=== PATIENT | male | born 1965 | race Caucasian/White ===

== ENCOUNTER 2020-01-07 07:20 | Outpatient (REF) | payer BC, SELFPAY | END 2020-01-07 07:21 | disposition home or self-care (01) | LOC: HO.LAB 07:20 | PROVIDERS: Visit Provider Internal Medicine | DX: Z20.828 Contact with and (suspected) exposure to other viral communicable diseases (principal) | CPT/HCPCS: C9803; U0003 ==

== ENCOUNTER 2021-01-15 13:08 | Inpatient (IN) | payer BC, SELFPAY ==
--- NOTE | ~2021-01-15 | CT_ITS ---
EXAMINATION: CT ANGIOGRAM OF THE CHEST WITH AND WITHOUT CONTRAST (CT PULMONARY ANGIOGRAM FOR PE) CLINICAL INFORMATION: Shortness of breath, Covid positive. COMPARISON: Chest radiograph done earlier today at 4:59 PM (01/15/2021). TECHNIQUE: Prior to contrast administration, noncontrast localization images were obtained. Subsequently, multidetector volumetric imaging was performed from the thoracic inlet to below the diaphragms following the administration of 71 mL Omnipaque 350 intravenous contrast. No contrast reaction reported Sagittal, coronal, and MIP oblique sagittal reformatted images were obtained on the CT workstation, uploaded to PACS, and reviewed. This CT examination was performed using dose optimization techniques as appropriate, variously including the following: *Automated exposure control *Adjustment of mA and/or kV according to patient size (this includes techniques or standardized protocols for targeted exams where dose is matched to indication/reason for exam; i.e. extremities or head) *Use of iterative reconstruction technique Total exam dose-length product 318 mGy-cm FINDINGS: QUALITY OF STUDY/CONTRAST BOLUS: Suboptimal. The attenuation of the pulmonary arteries is significantly less when compared to the attenuation of the aorta and its branches which significantly limits the assessment of pulmonary emboli. PULMONARY ARTERIES: As above, evaluation of segmental and subsegmental emboli is essentially nondiagnostic given suboptimal timing of intravenous contrast. No definite central pulmonary emboli are identified. THORACIC AORTA: No aneurysm or dissection. LUNG: Multifocal groundglass opacities with peripheral predominance. No pleural effusion or pneumothorax. The central airways are patent. MEDIASTINUM: Normal heart size. No pericardial effusion. No hilar or mediastinal lymphadenopathy. No evidence of septal bowing or right heart strain. CHEST WALL/AXILLA: No axillary or internal mammary lymphadenopathy. OSSEOUS STRUCTURES: No acute or suspicious osseous abnormality. UPPER ABDOMEN: Unremarkable. No reflux of contrast into the hepatic veins to suggest elevated right heart pressures. CT/CT angio chest PE protocol IMPRESSION: Evaluation of pulmonary emboli is suboptimal given decreased attenuation of the pulmonary arteries when compared to the attenuation of the aorta. Evaluation of segmental and subsegmental emboli is essentially nondiagnostic. No definite central pulmonary emboli are identified. No evidence of increased right-sided heart pressures. Multifocal groundglass opacities consistent with Covid pneumonia. VTE: indeterminate
--- NOTE | ~2021-01-15 | XR_ITS ---
EXAMINATION: XR CHEST CLINICAL INFORMATION: Weakness, Covid positive. COMPARISON: None TECHNIQUE: AP view of the chest was obtained. FINDINGS: Multifocal hazy airspace opacities. No pleural effusion or pneumothorax. Normal appearance of the cardiomediastinal silhouette. No acute osseous findings. XR/XR chest 1V IMPRESSION: Multifocal airspace disease most consistent with an atypical infectious or inflammatory process.
[2021-01-15 13:20] VITALS: BP 113/92; PULSE 77; RESP 18; TEMP 37.2; O2SAT 98; BMI 27.0
[2021-01-15] MEDS: ondansetron HCL 4 MG/2 ML VIAL IVPUSH (17:07)
[2021-01-15] MEDS: 0.9 % Sodium Chloride 1,000 ML 999 ML IV (17:08)
[2021-01-15 17:13] LABS: Basophils Percent Auto 0.1 % (0-2); Eosinophils Percent Auto 0.1 % (0-4); Hematocrit 47.6 % (42.0-52.0); Hemoglobin 15.8 g/dl (14.0-18.0); Imm Gran Abs Auto 0.11 X10*3/uL (0.00-0.03); Imm Gran Pct Auto 1.3 % (0.0-0.4); Lymphocytes Percent Auto 11.1 % (20-40); MANUAL DIFF FLAG NO; Mean Corpuscular HGB Conc 33.2 g/dl (31.0-36.0); Mean Corpuscular Hemoglobin 29.3 pg (27.0-33.0); Mean Corpuscular Volume 88.1 fL (80.0-98.0); Monocytes Absolute Auto 0.6 X10*3/uL (0.1-1.2); Monocytes Percent Auto 7.2 % (2-11); Neutrophils Absolute Auto 6.9 x10*3/uL (2.0-8.3); Neutrophils Percent Auto 80.2 % (45-73); Platelet Count 187 X10*3/uL (160-400); White Blood Count 8.6 X10*3/uL (4.8-10.8)
--- NOTE | 2021-01-15 17:17 | ED_ITS ---
HPI - URI/Sore Throat General Chief Complaint: Upper Respiratory Symptoms Stated Complaint: dehydration covid + 14 days Time Seen by Provider: 01/15/21 16:34 Source: patient Mode of arrival: ambulatory Limitations: no limitations History of Present Illness HPI Narrative: 55-year-old male known COVID positive here with complaints of feeling generally weak with nausea for the last few days. Patient tells me he tested positive for COVID about 12 days ago. He tells me he has been out home quarantine in. He feels like he is not eating and drinking much due to nausea. And because of that he is feeling weak and tired. He denies any vomiting, abdominal pain, diarrhea. He denies any cough, shortness of breath or fever. He received a COVID vaccine Cerelink x 2 unknown date/time Related Data Previous Rx's Medication Instructions Recorded azithromycin 250 mg tablet See Rx Instructions .ROUTE 01/15/21 .COMPLEX #6 tab ondansetron 4 mg disintegrating 4 mg PO Q6H PRN #10 tab 01/15/21 tablet Allergies Allergy/AdvReac Type Severity Reaction Status Date / Time No Known Allergies Allergy Unverified 11/06/19 15:34 Review of Systems Review of Systems: Yes all other systems are reviewed and are negative Constitutional: Constitutional: Reports no additional constitutional comp laints, Denies body ache(s), Denies chills, Denies fever(s), Denies headache(s) and Reports weakness Eyes: Eyes: Reports no additional eye complaints and Denies change in vision ENT: Reports system reviewed and no additional complaints, except as documented, Denies dizziness, Denies headache(s), Denies nasal congestion, Denies nasal discharge and Denies neck pain Cardiovascular: Cardiovascular: Reports no additional cardiovascular complaints, Denies chest pain, Denies leg edema and Denies dyspnea Respiratory: Respiratory: Reports no additional respiratory complaints, Denies cough and Denies dyspnea Gastrointestinal: Gastrointestinal: Reports no additional gastrointestinal complaints, Denies abdominal pain, Denies diarrhea, Reports nausea and Denies vomiting Genitourinary: Genitourinary: Denies urinary incontinence Musculoskeletal: Musculoskeletal: Reports no additional musculoskeletal complaints, Denies back pain, Denies arthralgias, Denies joint swelling, Denies neck pain, Denies numbness and Denies tingling Integumentary/Breasts: Skin/Breast: Reports system reviewed and no additional complaints, except as docu and Denies rash Neurologic: Reports system reviewed and no additional complaints, except as documented, Denies Abnormal speech present, Denies dizziness, Denies headache(s), Denies numbness, Denies tingling and Reports weakness PMFSH Past Medical History Attestation statement: The following information was validated with the patient. Source: old records reviewed and nursing notes reviewed Social History Social History Advance Directives: Yes Advance Directives Information Provided: Yes Advance Directives on File: No Physical Exam Vital Signs: Vital Signs: Last Vital Signs Temp 100.4 F 01/15/21 18:19 Pulse 84 01/15/21 18:19 Resp 18 01/15/21 18:19 BP 127/72 01/15/21 18:19 Pulse Ox 93 01/15/21 18:32 Body Mass Index 27.0 Const: General: cooperative, healthy appearing, comfortable and no acute dis tress Orientation/consciousness: patient oriented x3 Limitations: no limitations HENMT: Head: Yes normal to inspection Ears: hearing grossly normal bilaterally and TM's normal bilaterally General nose exam: Normal external nose present Face and sinus: Yes normal facial exam Mouth: Normal oral and palatal mucosa present Throat: Yes posterior oropharynx normal, Yes tonsils normal and Yes uvula midline Eyes: General: appearance normal, both eyes and all related structures Pupils: Equal, round and reactive pupils present Neck: Neck: Yes normal visual inspection Chest: Chest palpation & inspection: normal inspection of the chest Resp: Effort & Inspection: normal respiratory effort Auscultation: clear to auscultation bilaterally Cardio: Rate: regular rate Rhythm: regular rhythm Peripheral pulses: Peripheral pulses 2+ throughout GI: Inspection: Yes normal to inspection Palpation (GI): Soft to palpation and nontender Auscultation: normal bowel sounds Back/Spine/Pelvis: Thoracic/Lumbar Spine: thoracic and lumbar spine normal to inspection Skin: General skin exam: no rashes or lesions noted Neuro: General: patient oriented x3, no focal motor deficits and normal sensation to monofilament Cranial nerves: Yes Equal, round and reactive pupils present Cognition (Neuro): normal cognition Speech: No Abnormal speech present Gait exam (Neuro): Normal gait present Motor exam (neuro): 5/5 motor strength present throughout Extrem: General: Yes normal to inspection, Yes no pedal edema and Yes no calf tenderness Course Course Course Narrative: 55-year-old male known COVID positive here with complaints of feeling weak and nauseous despite supportive care at home. On arrival the patient is well-appearing. He denies any shortness of breath or cough or chest pain. His vitals are stable. Will check labs, place P IV and give normal saline bolus and IV antiemetic as well as check a chest x-ray. 1729- IMPRESSION: Multifocal airspace disease most consistent with an atypical infectious or inflammatory process. NO hypoxia/SOB/CP. This is from a viral infection. 0-patient desaturated to 89% on room air at rest. Plan for admission. Improved on 2 L of supplemental oxygen. Admission request sent Dr. cooper. Patient will not be admitted until night team arrives. MDM - URI/Sore Throat Medical Records Attestation: I reviewed the patient's medical records. Lab Data Attestation: I reviewed the patient's lab results. Result diagrams: 01/15/21 17:02 01/15/21 17:02 Labs: Lab Results 01/15/21 01/15/21 01/15/21 Range/Units 17:02 17:02 17:02 WBC 8.6 (4.8-10.8) X10*3/uL RBC 5.40 (4.60-5.80) X10*6/uL Hgb 15.8 (14.0-18.0) g/dl Hct 47.6 (42.0-52.0) % MCV 88.1 (80.0-98.0) fL MCH 29.3 (27.0-33.0) pg MCHC 33.2 (31.0-36.0) g/dl RDW 14.0 (11.0-16.0) % Plt Count 187 (160-400) X10*3/uL MPV 11.0 (9.4-12.4) fL Immature Gran % (Auto) 1.3 H (0.0-0.4) % Neut % (Auto) 80.2 H (45-73) % Lymph % (Auto) 11.1 L (20-40) % [place] % (Auto) 7.2 (2-11) % Eos % (Auto) 0.1 (0-4) % Baso % (Auto) 0.1 (0-2) % Lymph # (Auto) 1.0 L (1.2-4.9) X10*3/uL [place] # (Auto) 0.6 (0.1-1.2) X10*3/uL Eos # (Auto) 0.0 (0.0-0.4) X10*3/uL Baso # (Auto) 0.0 (0.0-0.2) X10*3/uL Abs Immat Gran (auto) 0.11 H (0.00-0.03) X10*3/uL Absolute Neuts (auto) 6.9 (2.0-8.3) x10*3/uL Absolute Nucleated RBC 0.000 (0.0-0.012) X10*3/uL Nucleated RBC % (auto) 0.0 (0.0-0.2) /100WBC Sodium 139 (135-145) mmol/L Potassium 4.2 (3.3-5.1) mmol/L Chloride 102 (96-108) mmol/L Carbon Dioxide 25 (22-29) mmol/L Anion Gap 16 (12-20) BUN 27 H (9-16) mg/dL Creatinine 1.07 (0.5-1.4) mg/dL Estim Creat Clear Calc 88.1 Estimated GFR > 60 Random Glucose 107 (60-115) mg/dL Calcium 7.7 L (8.4-10.2) mg/dL Total Bilirubin 1.1 H (0.0-1.0) mg/dL Direct Bilirubin 0.6 H (0.0-0.5) mg/dL AST 76 H (5-37) U/L ALT 72 H (0-40) U/L Alkaline Phosphatase 76 (39-117) U/L Lactate Dehydrogenase 664 H (118-273) U/L Troponin I High Sens 19.7 (<3.5-35.0) ng/L C-Reactive Protein 7.39 H (< or = 0.50) mg/dL Total Protein 6.4 L (6.5-8.0) g/dL Albumin 3.3 L (3.5-5.0) g/dL Procalcitonin ng/mL 11/27/21 Range/Units 17:02 WBC (4.8-10.8) X10*3/uL RBC (4.60-5.80) X10*6/uL Hgb (14.0-18.0) g/dl Hct (42.0-52.0) % MCV (80.0-98.0) fL MCH (27.0-33.0) pg MCHC (31.0-36.0) g/dl RDW (11.0-16.0) % Plt Count (160-400) X10*3/uL MPV (9.4-12.4) fL Immature Gran % (Auto) (0.0-0.4) % Neut % (Auto) (45-73) % Lymph % (Auto) (20-40) % [place] % (Auto) (2-11) % Eos % (Auto) (0-4) % Baso % (Auto) (0-2) % Lymph # (Auto) (1.2-4.9) X10*3/uL [place] # (Auto) (0.1-1.2) X10*3/uL Eos # (Auto) (0.0-0.4) X10*3/uL Baso # (Auto) (0.0-0.2) X10*3/uL Abs Immat Gran (auto) (0.00-0.03) X10*3/uL Absolute Neuts (auto) (2.0-8.3) x10*3/uL Absolute Nucleated RBC (0.0-0.012) X10*3/uL Nucleated RBC % (auto) (0.0-0.2) /100WBC Sodium (135-145) mmol/L Potassium (3.3-5.1) mmol/L Chloride (96-108) mmol/L Carbon Dioxide (22-29) mmol/L Anion Gap (12-20) BUN (9-16) mg/dL Creatinine (0.5-1.4) mg/dL Estim Creat Clear Calc Estimated GFR Random Glucose (60-115) mg/dL Calcium (8.4-10.2) mg/dL Total Bilirubin (0.0-1.0) mg/dL Direct Bilirubin (0.0-0.5) mg/dL AST (5-37) U/L ALT (0-40) U/L Alkaline Phosphatase (39-117) U/L Lactate Dehydrogenase (118-273) U/L Troponin I High Sens (<3.5-35.0) ng/L C-Reactive Protein (< or = 0.50) mg/dL Total Protein (6.5-8.0) g/dL Albumin (3.5-5.0) g/dL Procalcitonin 0.24 ng/mL Imaging Data Chest x-ray: Attestation: I personally reviewed and interpreted this imaging study as follows: Radiologist's impression: [address] [address] XRay Report Signed Patient: Edmar Lucas JR MR#: [id number] : 1965 Acct:[id number] Age/Sex: 55 / M ADM Date: 01/15/21 Loc: .ED Attending Dr: Ordering Physician: Cherrie Hightower NP Date of Service: 01/15/21 Procedure(s): XR chest 1V Accession Number(s): [id number] cc: Cherrie Hightower NP~ EXAMINATION: XR CHEST CLINICAL INFORMATION: Weakness, Covid positive. COMPARISON: None TECHNIQUE: AP view of the chest was obtained. FINDINGS: Multifocal hazy airspace opacities. No pleural effusion or pneumothorax. Normal appearance of the cardiomediastinal silhouette. No acute osseous findings. XR/XR chest 1V IMPRESSION: Multifocal airspace disease most consistent with an atypical infectious or inflammatory process. ECG Data Attestation: I personally reviewed and interpreted this ECG as follows: ECG interpretation date: 01/15/21 ECG interpretation time: 18:15 Interpretation: Normal sinus rhythm with rate 85, normal NC, normal QRS, normal QT Discharge Plan Discharge Clinical Impression: COVID-19, Atypical pneumonia, Hypoxic Patient Disposition: Admitted As Inpatient Instructions: Viral Pneumonia (ED), COVID-19 (Coronavirus Disease 2019) (ED) Prescriptions: New ondansetron 4 mg tablet,disintegrating 4 mg PO Q6H PRN (Reason: nausea and vomiting) Qty: 10 RF: 0 azithromycin 250 mg tablet See Rx Instructions .ROUTE .COMPLEX Qty: 6 RF: 0 Referrals: Hari,Tess, SQUAD BOSS [Primary Care Provider] - 2 days
--- NOTE | 2021-01-15 17:27 | ECG_ITS ---
Test Reason : UPPER RESPIRATORY Blood Pressure : / mmHG Vent. Rate : 085 BPM Atrial Rate : 085 BPM P-R Int : 164 ms QRS Dur : 110 ms QT Int : 392 ms P-R-T Axes : 056 056 037 degrees QTc Int : 466 ms Normal sinus rhythm RSR' or QR pattern in V1 suggests right ventricular conduction delay Otherwise normal ECG No previous ECGs available Referred By: Cherrie Hightower Electronically Signed By:SOTO CHAIDEZ MD
[2021-01-15 17:30] LABS: Alanine Aminotransferase 72 U/L (0-40); Albumin Level 3.3 g/dL (3.5-5.0); Alkaline Phosphatase 76 U/L (39-117); Anion Gap 16 (12-20); Aspartate Amino Transferase 76 U/L (5-37); Bilirubin Direct 0.6 mg/dL (0.0-0.5); Bilirubin Total 1.1 mg/dL (0.0-1.0); Blood Urea Nitrogen 27 mg/dL (9-16); Calcium 7.7 mg/dL (8.4-10.2); Carbon Dioxide 25 mmol/L (22-29); Chloride 102 mmol/L (96-108); Creatinine Clr Calc Pharmacy 88.1; Estimated Glomerular Filt Rate > 60; Glucose Random 107 mg/dL (60-115); Potassium 4.2 mmol/L (3.3-5.1); Sodium 139 mmol/L (135-145); Total Protein 6.4 g/dL (6.5-8.0)
[2021-01-15 17:43] LABS: C Reactive Protein 7.39 mg/dL (< or = 0.50)
[2021-01-15 17:54] LABS: Lactate Dehydrogenase 664 U/L (118-273)
[2021-01-15 17:55] LABS: Troponin-I High Sensitivity 19.7 ng/L (<3.5-35.0)
[2021-01-15 18:19] VITALS: BP 127/72; PULSE 84; RESP 18; TEMP 38; O2SAT 91
[2021-01-15 18:28] LABS: Procalcitonin 0.24 ng/mL
[2021-01-15 18:32] VITALS: O2SAT 89; O2SAT 93
--- NOTE | 2021-01-15 18:32 | PC.NURSE ---
pt down to 89% RA, placed on 2L NC up to 93%. aware.
[2021-01-15 18:49] LABS: Ferritin 6166 ng/mL (20-250)
[2021-01-15] MEDS: dexAMETHasone sod phosphate 4 MG/ML VIAL 6 MG IVPUSH (18:56)
[2021-01-15 19:29] LABS: INTERNATIONAL NORM RATIO 1.3 (0.9-1.1); Prothrombin Time 14.8 SEC (9.9-13.0)
[2021-01-15 19:31] LABS: D Dimer High Sensitivity 425 NG/ML
[2021-01-15 19:34] LABS: COVID-19 Test Negative (Negative)
[2021-01-15 19:36] LABS: Lactic Acid 1.6 mmol/L (0.5-2.0)
[2021-01-15 19:45] LABS: Troponin-I High Sensitivity 22.8 ng/L (<3.5-35.0)
--- NOTE | 2021-01-15 20:22 | PM.IMHP ---
History of Present Illness Date of Service: 01/15/21 Chief Complaint: SOB/Gen Weakness 55-year-old male with a past medical history of BPH, hyperlipidemia presented to the hospital with a chief complaint of shortness of breath / generalized weakness. Patient reported that he was diagnosed with COVID-19 positive about 12 days ago and has been on home quarantine; he has been feeling weak and tired. Dyspnea on exertion. Denies any chest pain or palpitations. As the symptoms were not improving decided to come to the hospital for further evaluation. Denies any nausea vomiting diarrhea. Denies any urinary symptoms. Review of all other systems is negative except mentioned above ER course: Per ER team patient on presentation noted to be mildly hypoxic on room air, not in respiratory distress; coarse lung sounds, CT chest is pending; chest x-ray showed multifocal pneumonia; inflammatory markers elevated -concern for COVID; rapid COVID test negative; admitted to the hospital for further management PMFSH Pertinent family history: reviewed Social History Advance Directives: Yes Advance Directives Information Provided: Yes Advance Directives on File: No Meds Allergies Allergy/AdvReac Type Severity Reaction Status Date / Time No Known Allergies Allergy Unverified 11/06/19 15:34 Active Medications: Current Medications Acetaminophen (Acetaminophen 325 Mg Tablet) 650 mg PO Q6H PRN PRN Reason: Pain, Mild (Pain Scale 1-3) Albuterol/Ipratropium (Albuterol/Iprat 2.5/0.5mg 3 Ml Ampul.Neb) 3 ml INHALE RQ4H PRN PRN Reason: Shortness of Breath/Wheezing Azithromycin (Azithromycin 500 Mg Tablet) 500 mg PO Q24H CARLY Dexamethasone Sodium Phosphate (Dexamethasone Sod Phosphate 4 Mg/Ml Vial) 6 mg IVPUSH DAILY CARLY Enoxaparin Sodium (Enoxaparin Sodium 40 Mg/0.4 Ml Syringe) 40 mg SUBCUT Q24H CARLY Ceftriaxone Sodium 1 gm/ (Sodium Chloride) 50 mls @ 100 mls/hr IV Q24H CARLY Melatonin (Melatonin 3 Mg Tablet) 6 mg PO BEDTIME PRN PRN Reason: Insomnia Morphine Sulfate (Morphine Sulfate 2 Mg/Ml Cartridge) 1 mg IVPUSH Q4H PRN; Protocol PRN Reason: SOB/PAin Pharmacy Consult (Consult Rx Perform Med Rec) 1 each MISCELLANE ONCE PRN PRN Reason: Consult order Senna (Sennosides 8.6 Mg Tablet) 17.2 mg PO BEDTIME PRN PRN Reason: Constipation Sodium Chloride (0.9 % Sodium Chloride Flush 3 Ml Syringe) 3 ml IVFLUSH QSHIFT CARLY Physical Exam Vital Signs and Narrative: Vital Signs: Last Vital Signs Temp 100.4 F 01/15/21 18:19 Pulse 84 01/15/21 18:19 Resp 18 01/15/21 18:19 BP 127/72 01/15/21 18:19 Pulse Ox 93 01/15/21 18:32 Body Mass Index 27.0 Gen: Appears be in no acute distress. Speaks in full sentences. On supplemental oxygen. HEENT: NCAT, Moist mucosa. Pulmonary: coarse breath sounds, fair air entry CVS: Normal S1-S2 Abdomen: BS+, Soft, Nontender Extremities: Warm well perfused Neuro: Alert and awake. Results Labs CBC and Chem 7: 01/15/21 17:02 01/15/21 17:02 Labs: Laboratory Results - last 24 hr 01/15/21 01/15/21 01/15/21 17:02 17:02 17:02 MCV 88.1 MCH 29.3 MCHC 33.2 RDW 14.0 Plt Count 187 MPV 11.0 Immature Gran % (Auto) 1.3 H Neut % (Auto) 80.2 H Lymph % (Auto) 11.1 L [place] % (Auto) 7.2 Eos % (Auto) 0.1 Baso % (Auto) 0.1 Lymph # (Auto) 1.0 L [place] # (Auto) 0.6 Eos # (Auto) 0.0 Baso # (Auto) 0.0 Abs Immat Gran (auto) 0.11 H Absolute Neuts (auto) 6.9 Absolute Nucleated RBC 0.000 Nucleated RBC % (auto) 0.0 PT INR D-Dimer High Sensitivty Anion Gap 16 Estim Creat Clear Calc 88.1 Estimated GFR > 60 Random Glucose 107 Lactic Acid Calcium 7.7 L Ferritin 6166 H Total Bilirubin 1.1 H Direct Bilirubin 0.6 H AST 76 H ALT 72 H Alkaline Phosphatase 76 Lactate Dehydrogenase 664 H Troponin I High Sens 19.7 C-Reactive Protein 7.39 H Total Protein 6.4 L Albumin 3.3 L Procalcitonin COVID-19 ([facility]) COVID-19 Clin Com 01/15/21 01/15/21 01/15/21 17:02 19:13 19:13 MCV MCH MCHC RDW Plt Count MPV Immature Gran % (Auto) Neut % (Auto) Lymph % (Auto) [place] % (Auto) Eos % (Auto) Baso % (Auto) Lymph # (Auto) [place] # (Auto) Eos # (Auto) Baso # (Auto) Abs Immat Gran (auto) Absolute Neuts (auto) Absolute Nucleated RBC Nucleated RBC % (auto) PT 14.8 H INR 1.3 H D-Dimer High Sensitivty 425 Anion Gap Estim Creat Clear Calc Estimated GFR Random Glucose Lactic Acid 1.6 Calcium Ferritin Total Bilirubin Direct Bilirubin AST ALT Alkaline Phosphatase Lactate Dehydrogenase Troponin I High Sens C-Reactive Protein Total Protein Albumin Procalcitonin 0.24 COVID-19 ([facility]) COVID-19 Clin Com 01/15/21 01/15/21 19:13 19:13 MCV MCH MCHC RDW Plt Count MPV Immature Gran % (Auto) Neut % (Auto) Lymph % (Auto) [place] % (Auto) Eos % (Auto) Baso % (Auto) Lymph # (Auto) [place] # (Auto) Eos # (Auto) Baso # (Auto) Abs Immat Gran (auto) Absolute Neuts (auto) Absolute Nucleated RBC Nucleated RBC % (auto) PT INR D-Dimer High Sensitivty Anion Gap Estim Creat Clear Calc Estimated GFR Random Glucose Lactic Acid Calcium Ferritin Total Bilirubin Direct Bilirubin AST ALT Alkaline Phosphatase Lactate Dehydrogenase Troponin I High Sens 22.8 C-Reactive Protein Total Protein Albumin Procalcitonin COVID-19 ([facility]) Negative COVID-19 Clin Com See Note Imaging Radiologist's Impressions: Impressions Chest X-Ray 01/15/21 16:51 IMPRESSION: Multifocal airspace disease most consistent with an atypical infectious or inflammatory process. Assessment and Plan (1) Atypical pneumonia: Status: Acute (2) Hypoxic: Status: Acute (3) COVID-19: Status: Acute 55-year-old male with a past medical history of BPH, hyperlipidemia presented to the hospital with a chief complaint of shortness of breath / generalized weakness. COVID positive 10 days ago. Noted to have COVID-19 pneumonia. Admitted for further management. COVID-19 pneumonia: Continue ceftriaxone azithromycin dexamethasone 6 mg daily Supplemental oxygen CT chest with PE protocol pending ID consult for further recommendations DVT prophylaxis: Lovenox Code status: Full code Quality Stroke Does the patient have a stroke diagnosis?: No VTE Prior VTE?: No VTE Risk Level:: Medical - moderate - high VTE Device Contraindication: Treatment Not Indicated VTE Drug Contraindication: N/A - Med Ordered
[2021-01-15] MEDS: Azithromycin 500 MG TABLET PO (20:24)
[2021-01-15] MEDS: cefTRIAXone sodium 1 GM in 0.9 % Sodium Chloride 50 ML IV (20:24)
[2021-01-15] MEDS: Enoxaparin Sodium 40 MG/0.4 ML SYRINGE SUBCUT (20:24)
[2021-01-15] MEDS: iohexoL 350 MG/ML 100 ML INFUS..BTL IV (21:04)
[2021-01-15 23:27] VITALS: BP 107/64; PULSE 73; RESP 22; O2SAT 93
[2021-01-16 01:47] VITALS: BP 102/65; PULSE 65; RESP 20; O2SAT 93
[2021-01-16 06:23] VITALS: PULSE 67; RESP 18; O2SAT 96
[2021-01-16 06:59] LABS: Basophils Percent Auto 0.4 % (0-2); Hemoglobin 15.3 g/dl (14.0-18.0); Imm Gran Abs Auto 0.12 X10*3/uL (0.00-0.03); Imm Gran Pct Auto 2.3 % (0.0-0.4); Lymphocytes Percent Auto 19.8 % (20-40); MANUAL DIFF FLAG SCAN; Mean Corpuscular HGB Conc 33.3 g/dl (31.0-36.0); Mean Corpuscular Hemoglobin 29.5 pg (27.0-33.0); Mean Corpuscular Volume 88.8 fL (80.0-98.0); Mean Platelet Volume 11.3 fL (9.4-12.4); Monocytes Absolute Auto 0.5 X10*3/uL (0.1-1.2); Neutrophils Absolute Auto 3.6 x10*3/uL (2.0-8.3); Neutrophils Percent Auto 68.5 % (45-73); Platelet Count 221 X10*3/uL (160-400); Red Blood Count 5.18 X10*6/uL (4.60-5.80); Red Cell Distribution Width 13.7 % (11.0-16.0); SCAN SMEAR FLAG 1; White Blood Count 5.2 X10*3/uL (4.8-10.8)
[2021-01-16 07:14] LABS: Anion Gap 20 (12-20); Blood Urea Nitrogen 23 mg/dL (9-16); Carbon Dioxide 22 mmol/L (22-29); Chloride 102 mmol/L (96-108); Creatinine Clr Calc Pharmacy 84.2; Estimated Glomerular Filt Rate > 60; Glucose Random 172 mg/dL (60-115); Potassium 4.6 mmol/L (3.3-5.1); Sodium 139 mmol/L (135-145)
[2021-01-16 07:22] LABS: SLIDE REVIEW VERIFIED
[2021-01-16] MEDS: Acetaminophen 325 MG TABLET 650 MG PO (08:27)
[2021-01-16] MEDS: dexAMETHasone sod phosphate 4 MG/ML VIAL 6 MG IVPUSH (08:28)
[2021-01-16 08:31] VITALS: BP 111/62; PULSE 71; RESP 18; TEMP 36.9; O2SAT 93
--- NOTE | 2021-01-16 08:35 | PC.NURSE ---
Assumed care of patient. Pt is resting comfortably and does not appear to be in any respiratory distress. Pt noted to desat when the NC falls off. Pt remains on oxygen at 4lpm. Pt states he does not feel like he needs a neb treatment at this time. Pt medicated with morning steroids and given tylenol PRN.
--- NOTE | 2021-01-16 08:58 | PHA.MEDREC ---
Pharmacy Consult ? Medication Reconciliation Pharmacy has completed the medication reconciliation. Nevin FieldsD BCPS
--- NOTE | 2021-01-16 10:41 | P.PNIM_ITS ---
Subjective Subjective Date of Service: 01/16/21 Interval History: Being followed for COVID-19 infection and hypoxia, feeling better this morning, appetite improved, less weakness remains hypoxic, denies fever chills no other acute issues overnight. Review of Systems General no headache, no dizziness, no fever chills. CVS no chest pain, no palpitation. Respiratory dry cough ,sob Gastrointestinal no nausea, no vomiting, no abdominal pain Physical Exam Vital Signs: Vital Signs: Last Vital Signs Temp 98.4 F 01/16/21 08:31 Pulse 71 01/16/21 08:31 Resp 18 01/16/21 08:31 BP 111/62 01/16/21 08:31 Pulse Ox 93 01/16/21 08:31 Body Mass Index 27.0 General awake alert x3,no acute distress. Neck supple, no JVD. CVS regular rate rhythm, Respiratory lungs bilateral coarse breath sounds /rhonchi, no respiratory distress, Gastrointestinal abdomen soft, nontender, bowel sounds audible, no no guarding , no rigidity. Extremities no edema. Neuro nonfocal Skin no rash Psych appropriate affect Objective Data Active Medications Acetaminophen (Acetaminophen 325 Mg Tablet) 650 mg PO Q6H PRN PRN Reason: Pain, Mild (Pain Scale 1-3) Last Admin: 01/16/21 08:27 Dose: 650 mg Documented by: FRACISCO Albuterol/Ipratropium (Albuterol/Iprat 2.5/0.5mg 3 Ml Ampul.Neb) 3 ml INHALE RQ4H PRN PRN Reason: Shortness of Breath/Wheezing Azithromycin (Azithromycin 500 Mg Tablet) 500 mg PO Q24H [facility] Last Admin: 01/15/21 20:24 Dose: 500 mg Documented by: KAITLYN Dexamethasone Sodium Phosphate (Dexamethasone Sod Phosphate 4 Mg/Ml Vial) 6 mg IVPUSH DAILY [facility] Last Admin: 01/16/21 08:28 Dose: 6 mg Documented by: FRACISCO Enoxaparin Sodium (Enoxaparin Sodium 40 Mg/0.4 Ml Syringe) 40 mg SUBCUT Q24H [facility] Last Admin: 01/15/21 20:24 Dose: 40 mg Documented by: KAITLYN Ceftriaxone Sodium 1 gm/ (Sodium Chloride) 50 mls @ 100 mls/hr IV Q24H [facility] Last Infusion: 01/16/21 00:21 Dose: 0 mls/hr Documented by: KAITLYN Melatonin (Melatonin 3 Mg Tablet) 6 mg PO BEDTIME PRN PRN Reason: Insomnia Morphine Sulfate (Morphine Sulfate 2 Mg/Ml Cartridge) 1 mg IVPUSH Q4H PRN; Protocol PRN Reason: SOB/PAin Pharmacy Consult (Consult Rx Perform Med Rec) 1 each MISCELLANE ONCE PRN PRN Reason: Consult order Senna (Sennosides 8.6 Mg Tablet) 17.2 mg PO BEDTIME PRN PRN Reason: Constipation Sodium Chloride (0.9 % Sodium Chloride Flush 3 Ml Syringe) 3 ml IVFLUSH QSHIFT [facility] Last Admin: 01/16/21 07:08 Dose: Not Given Documented by: FRACISCO Non-Admin Reason: Med Not Available Labs CBC & Chem 7: 01/16/21 06:40 01/16/21 06:40 Labs: Laboratory Results - last 24 hr 01/15/21 01/15/21 01/15/21 17:02 17:02 17:02 MCV 88.1 MCH 29.3 MCHC 33.2 RDW 14.0 Plt Count 187 MPV 11.0 Immature Gran % (Auto) 1.3 H Neut % (Auto) 80.2 H Lymph % (Auto) 11.1 L Story % (Auto) 7.2 Eos % (Auto) 0.1 Baso % (Auto) 0.1 Lymph # (Auto) 1.0 L Story # (Auto) 0.6 Eos # (Auto) 0.0 Baso # (Auto) 0.0 Abs Immat Gran (auto) 0.11 H Absolute Neuts (auto) 6.9 Absolute Nucleated RBC 0.000 Nucleated RBC % (auto) 0.0 Smear Tech's Comments PT INR D-Dimer High Sensitivty Anion Gap 16 Estim Creat Clear Calc 88.1 Estimated GFR > 60 Random Glucose 107 Lactic Acid Calcium 7.7 L Ferritin 6166 H Total Bilirubin 1.1 H Direct Bilirubin 0.6 H AST 76 H ALT 72 H Alkaline Phosphatase 76 Lactate Dehydrogenase 664 H Troponin I High Sens 19.7 C-Reactive Protein 7.39 H Total Protein 6.4 L Albumin 3.3 L Procalcitonin COVID-19 ([facility]) COVID-19 Clin Com 01/15/21 01/15/21 01/15/21 17:02 19:13 19:13 MCV MCH MCHC RDW Plt Count MPV Immature Gran % (Auto) Neut % (Auto) Lymph % (Auto) Story % (Auto) Eos % (Auto) Baso % (Auto) Lymph # (Auto) Story # (Auto) Eos # (Auto) Baso # (Auto) Abs Immat Gran (auto) Absolute Neuts (auto) Absolute Nucleated RBC Nucleated RBC % (auto) Smear Tech's Comments PT 14.8 H INR 1.3 H D-Dimer High Sensitivty 425 Anion Gap Estim Creat Clear Calc Estimated GFR Random Glucose Lactic Acid 1.6 Calcium Ferritin Total Bilirubin Direct Bilirubin AST ALT Alkaline Phosphatase Lactate Dehydrogenase Troponin I High Sens C-Reactive Protein Total Protein Albumin Procalcitonin 0.24 COVID-19 ([facility]) [email or web address] 01/15/21 01/15/21 01/16/21 19:13 19:13 06:40 MCV 88.8 MCH 29.5 MCHC 33.3 RDW 13.7 Plt Count 221 MPV 11.3 Immature Gran % (Auto) 2.3 H Neut % (Auto) 68.5 Lymph % (Auto) 19.8 L Story % (Auto) 9.0 Eos % (Auto) 0.0 Baso % (Auto) 0.4 Lymph # (Auto) 1.0 L Story # (Auto) 0.5 Eos # (Auto) 0.0 Baso # (Auto) 0.0 Abs Immat Gran (auto) 0.12 H Absolute Neuts (auto) 3.6 Absolute Nucleated RBC 0.000 Nucleated RBC % (auto) 0.0 Smear Tech's Comments VERIFIED PT INR D-Dimer High Sensitivty Anion Gap Estim Creat Clear Calc Estimated GFR Random Glucose Lactic Acid Calcium Ferritin Total Bilirubin Direct Bilirubin AST ALT Alkaline Phosphatase Lactate Dehydrogenase Troponin I High Sens 22.8 C-Reactive Protein Total Protein Albumin Procalcitonin COVID-19 ([facility]) Negative COVID-19 [facility] Com See Note 01/16/21 06:40 MCV MCH MCHC RDW Plt Count MPV Immature Gran % (Auto) Neut % (Auto) Lymph % (Auto) Story % (Auto) Eos % (Auto) Baso % (Auto) Lymph # (Auto) Story # (Auto) Eos # (Auto) Baso # (Auto) Abs Immat Gran (auto) Absolute Neuts (auto) Absolute Nucleated RBC Nucleated RBC % (auto) Smear Tech's Comments PT INR D-Dimer High Sensitivty Anion Gap 20 Estim Creat Clear Calc 84.2 Estimated GFR > 60 Random Glucose 172 H D Lactic Acid Calcium 8.0 L Ferritin Total Bilirubin Direct Bilirubin AST ALT Alkaline Phosphatase Lactate Dehydrogenase Troponin I High Sens C-Reactive Protein Total Protein Albumin Procalcitonin COVID-19 ([facility]) COVID-19 Clin Com Assessment and Plan (1) COVID-19: Status: Acute (2) Acute respiratory failure with hypoxia: Status: Acute Assessment and Plan: 55-year-old male with a past medical history of BPH, hyperlipidemia presented to the hospital with a chief complaint of shortness of breath / generalized weakness. ? COVID positive 10 days ago.? Noted to have COVID-19 pneumonia.? Admitted for further management.? Acute hypoxic respiratory failure due to COVID-19 pneumonia Patient diagnosed to have COVID 9 days ago Feeling better this morning Continue ceftriaxone and azithromycin day 2 Continue IV?dexamethasone 6 mg day 2, will add Pepcid, cough medication, vit C and zinc, recommend frequent position change Continue Supplemental oxygen to keep finger oximetry 94% Will gradually wean oxygen and assess for home O2 prior to discharge CT chest showed no PE? ID consult for further recommendations DVT prophylaxis:? Lovenox Code status:? Full code Quality Stroke Does the patient have a stroke diagnosis?: No VTE Prior VTE?: No VTE Risk Level:: Medical - moderate - high VTE Device Contraindication: Treatment Not Indicated VTE Drug Contraindication: N/A - Med Ordered
--- NOTE | 2021-01-16 13:55 | MHC.CM.PN ---
Met with pt to discuss d/c planning: pt resides alone: works fulltime: independent with all care needs with no barriers to care identified: HCP requested: pt states he'll call family for transportation home. No additional services anticipated.
[2021-01-16 15:17] VITALS: BP 97/55; PULSE 67; RESP 16; TEMP 36.7; O2SAT 93
[2021-01-16] MEDS: Enoxaparin Sodium 40 MG/0.4 ML SYRINGE SUBCUT (20:31)
[2021-01-16] MEDS: Azithromycin 500 MG TABLET PO (20:32)
[2021-01-16] MEDS: Famotidine 20 MG TABLET PO (20:32)
[2021-01-16] MEDS: cefTRIAXone sodium 1 GM in 0.9 % Sodium Chloride 50 ML IV (20:34)
[2021-01-16 20:41] VITALS: BP 100/64; PULSE 67; RESP 18; TEMP 36.8; O2SAT 93
[2021-01-17] VITALS (7 sets, daily range): BP systolic 101–120; BP diastolic 53–75; PULSE 55–74; RESP 16–22; TEMP 36.6–37.2; O2SAT 82–96; BMI 26.2
[2021-01-17] MEDS: dexAMETHasone sod phosphate 4 MG/ML VIAL 6 MG IVPUSH (08:52)
[2021-01-17] MEDS: Ascorbic Acid 500 MG TABLET PO (08:53)
[2021-01-17] MEDS: Fenofibrate 160 MG TABLET PO (08:53)
[2021-01-17] MEDS: Multivitamin TABLET 1 TAB PO (08:53)
[2021-01-17] MEDS: Famotidine 20 MG TABLET PO ×2 (08:53→20:08)
[2021-01-17] MEDS: Zinc Sulfate 220 MG CAPSULE PO (08:53)
[2021-01-17] MEDS: 0.9 % Sodium Chloride Flush 3 ML SYRINGE IVFLUSH ×2 (08:56→20:08)
--- NOTE | 2021-01-17 16:53 | P.PNIM_ITS ---
Subjective Subjective Date of Service: 01/17/21 Interval History: Being followed for hypoxic respiratory failure due to COVID-19 infection, Feeling better this morning, wants to go home, oxygenation dropped to 82% with couple steps, oxygenation at rest is 90 percent Review of Systems General no headache, no dizziness, no fever chills.? CVS no chest pain, no palpitation.? Respiratory dry cough ,sob with exertion Gastrointestinal no nausea, no vomiting, no abdominal pain Review of Systems: Yes all other systems are reviewed and are negative Physical Exam Vital Signs: Vital Signs: Last Vital Signs Temp 98.1 F 01/17/21 15:51 Pulse 74 01/17/21 15:51 Resp 16 01/17/21 15:51 BP 114/72 01/17/21 15:51 Pulse Ox 96 01/17/21 15:51 Body Mass Index 27.0 General awake alert x3,no acute distress.? Neck supple, no JVD. CVS? regular rate rhythm, Respiratory lungs bilateral coarse breath sounds /rhonchi, no respiratory distress, Gastrointestinal abdomen soft, nontender, bowel sounds audible, no guarding , no rigidity. Extremities no edema. Neuro nonfocal Skin no rash Psych appropriate affect Objective Data Active Medications Acetaminophen (Acetaminophen 325 Mg Tablet) 650 mg PO Q6H PRN PRN Reason: Pain, Mild (Pain Scale 1-3) Last Admin: 01/16/21 08:27 Dose: 650 mg Documented by: FRACISCO Albuterol/Ipratropium (Albuterol/Iprat 2.5/0.5mg 3 Ml Ampul.Neb) 3 ml INHALE RQ4H PRN PRN Reason: Shortness of Breath/Wheezing Ascorbic Acid (Ascorbic Acid 500 Mg Tablet) 500 mg PO DAILY [facility] Last Admin: 01/17/21 08:53 Dose: 500 mg Documented by: TIFFANIE Azithromycin (Azithromycin 500 Mg Tablet) 500 mg PO Q24H [facility] Last Admin: 01/16/21 20:32 Dose: 500 mg Documented by: MARELY Dexamethasone Sodium Phosphate (Dexamethasone Sod Phosphate 4 Mg/Ml Vial) 6 mg IVPUSH DAILY [facility] Last Admin: 01/17/21 08:52 Dose: 6 mg Documented by: TIFFANIE Enoxaparin Sodium (Enoxaparin Sodium 40 Mg/0.4 Ml Syringe) 40 mg SUBCUT Q24H [facility] Last Admin: 01/16/21 20:31 Dose: 40 mg Documented by: MARELY Famotidine (Famotidine 20 Mg Tablet) 20 mg PO BID [facility] Last Admin: 01/17/21 08:53 Dose: 20 mg Documented by: TIFFANIE Fenofibrate (Fenofibrate 160 Mg Tablet) 160 mg PO DAILY [facility] Last Admin: 01/17/21 08:53 Dose: 160 mg Documented by: TIFFANIE Guaifenesin/Dextromethorphan (Guaifenesin Dm 100/10/5 Ml 5 Ml Syrup) 1 ml PO Q6H PRN PRN Reason: cough Ceftriaxone Sodium 1 gm/ (Sodium Chloride) 50 mls @ 100 mls/hr IV Q24H [facility] Last Infusion: 01/16/21 21:05 Dose: 0 mls/hr Documented by: MARELY Melatonin (Melatonin 3 Mg Tablet) 6 mg PO BEDTIME PRN PRN Reason: Insomnia Morphine Sulfate (Morphine Sulfate 2 Mg/Ml Cartridge) 1 mg IVPUSH Q4H PRN; Protocol PRN Reason: SOB/PAin Multivitamins/Vitamin C (Multivitamin Tablet) 1 tab PO DAILY [facility] Last Admin: 01/17/21 08:53 Dose: 1 tab Documented by: TIFFANIE Pharmacy Consult (Consult Rx Perform Med Rec) 1 each MISCELLANE ONCE PRN PRN Reason: Consult order Senna (Sennosides 8.6 Mg Tablet) 17.2 mg PO BEDTIME PRN PRN Reason: Constipation Sodium Chloride (0.9 % Sodium Chloride Flush 3 Ml Syringe) 3 ml IVFLUSH QSHIFT [facility] Last Admin: 01/17/21 08:56 Dose: 3 ml Documented by: TIFFANIE Zinc Sulfate (Zinc Sulfate 220 Mg Capsule) 220 mg PO DAILY [facility] Last Admin: 01/17/21 08:53 Dose: 220 mg Documented by: TIFFANIE Labs CBC & Chem 7: 01/16/21 06:40 01/16/21 06:40 Microbiology Microbiology Results: Microbiology 01/15/21 19:13 Blood Culture - Preliminary Blood - Venous No growth after 24 hours. 01/15/21 19:01 Blood Culture - Preliminary Blood - Venous No growth after 24 hours. Assessment and Plan (1) Acute respiratory failure with hypoxia: Status: Acute (2) COVID-19: Status: Acute Assessment and Plan: 55-year-old male with a past medical history of BPH, hyperlipidemia presented to the hospital with a chief complaint of shortness of breath / generalized weakness. ? COVID positive 10 days ago.? Noted to have COVID-19 pneumonia.? Admitted for further management.? Acute hypoxic respiratory failure due to COVID-19 pneumonia Patient diagnosed to have COVID infection couple weeks ago repeat COVID test negative Feeling better this morning but has exertional shortness of breath and hypoxia Continue ceftriaxone and azithromycin day 3 Continue IV?dexamethasone 6 mg day 3, continue po Pepcid, cough medication, vit C and zinc, recommend frequent position change Continue Supplemental oxygen to keep finger oximetry 94% Home O2 eval ordered ID consult for further recommendations pending DVT prophylaxis:? Lovenox Code status:? Full code Quality Stroke Does the patient have a stroke diagnosis?: No VTE Prior VTE?: No VTE Risk Level:: Medical - moderate - high VTE Device Contraindication: Treatment Not Indicated VTE Drug Contraindication: N/A - Med Ordered
--- NOTE | 2021-01-17 19:28 | PC.NURSE ---
Patient brought up from ED at approximately 18:30. Patient was settled in bed, call das within reach, denied any SOB or pain. of patient was reminded of the no visitor policy for COVID patients. Report was provided to myles RN.
[2021-01-17] MEDS: Azithromycin 500 MG TABLET PO (20:08)
[2021-01-17] MEDS: guaiFENesin DM 100/10/5 ML 5 ML SYRUP 1 ML PO (20:08)
[2021-01-17] MEDS: cefTRIAXone sodium 1 GM in 0.9 % Sodium Chloride 50 ML IV (20:08)
[2021-01-17] MEDS: Enoxaparin Sodium 40 MG/0.4 ML SYRINGE SUBCUT (20:08)
--- NOTE | 2021-01-17 22:15 | W.PM.IDCN ---
History of Present Illness Data of Consult Service Date: 01/17/21 Requesting physician: Suzan Edmond Primary Care Provider: Tess Noriega NP HPI Reason for consult: COVID He presents with shortness of breath for two weeks He received two COVID vaccines in spring but no booster He has dry cough and some hypoxia Review of Systems Review of Systems: Yes all other systems are reviewed and are negative PMFSH Past Medical History Medical History (Updated 01/26/21 @ 00:03 by Gloria Teague) COVID-19 Family History Family history: reviewed and not pertinent Social History Social History Household Members: None Housing: House Do you presently have visiting nurse or other home services: Yes Patient Tobacco Use Status: Former Tobacco user Years Smoked: 25 service: No Current occupational status: employed Meds Allergies Allergy/AdvReac Type Severity Reaction Status Date / Time No Known Allergies Allergy Unverified 11/06/19 15:34 Active Medications: Current Medications Acetaminophen (Acetaminophen 325 Mg Tablet) 650 mg PO Q6H PRN PRN Reason: Pain, Mild (Pain Scale 1-3) Last Admin: 01/16/21 08:27 Dose: 650 mg Documented by: Albuterol/Ipratropium (Albuterol/Iprat 2.5/0.5mg 3 Ml Ampul.Neb) 3 ml INHALE RQ4H PRN PRN Reason: Shortness of Breath/Wheezing Ascorbic Acid (Ascorbic Acid 500 Mg Tablet) 500 mg PO DAILY [facility] Last Admin: 01/17/21 08:53 Dose: 500 mg Documented by: Azithromycin (Azithromycin 500 Mg Tablet) 500 mg PO Q24H [facility] Last Admin: 01/17/21 20:08 Dose: 500 mg Documented by: Dexamethasone Sodium Phosphate (Dexamethasone Sod Phosphate 4 Mg/Ml Vial) 6 mg IVPUSH DAILY [facility] Last Admin: 01/17/21 08:52 Dose: 6 mg Documented by: Enoxaparin Sodium (Enoxaparin Sodium 40 Mg/0.4 Ml Syringe) 40 mg SUBCUT Q24H [facility] Last Admin: 01/17/21 20:08 Dose: 40 mg Documented by: Famotidine (Famotidine 20 Mg Tablet) 20 mg PO BID [facility] Last Admin: 01/17/21 20:08 Dose: 20 mg Documented by: Fenofibrate (Fenofibrate 160 Mg Tablet) 160 mg PO DAILY [facility] Last Admin: 01/17/21 08:53 Dose: 160 mg Documented by: Guaifenesin/Dextromethorphan (Guaifenesin Dm 100/10/5 Ml 5 Ml Syrup) 1 ml PO Q6H PRN PRN Reason: cough Last Admin: 01/17/21 20:08 Dose: 1 ml Documented by: Ceftriaxone Sodium 1 gm/ (Sodium Chloride) 50 mls @ 100 mls/hr IV Q24H [facility] Last Infusion: 01/17/21 20:52 Dose: Infused Documented by: Melatonin (Melatonin 3 Mg Tablet) 6 mg PO BEDTIME PRN PRN Reason: Insomnia Morphine Sulfate (Morphine Sulfate 2 Mg/Ml Cartridge) 1 mg IVPUSH Q4H PRN; Protocol PRN Reason: SOB/PAin Multivitamins/Vitamin C (Multivitamin Tablet) 1 tab PO DAILY [facility] Last Admin: 01/17/21 08:53 Dose: 1 tab Documented by: Pharmacy Consult (Consult Rx Perform Med Rec) 1 each MISCELLANE ONCE PRN PRN Reason: Consult order Senna (Sennosides 8.6 Mg Tablet) 17.2 mg PO BEDTIME PRN PRN Reason: Constipation Sodium Chloride (0.9 % Sodium Chloride Flush 3 Ml Syringe) 3 ml IVFLUSH QSHIFT [facility] Last Admin: 01/17/21 20:08 Dose: 3 ml Documented by: Zinc Sulfate (Zinc Sulfate 220 Mg Capsule) 220 mg PO DAILY [facility] Last Admin: 01/17/21 08:53 Dose: 220 mg Documented by: Home Medications Medication Instructions Recorded Confirmed Last Taken Type fenofibrate 160 mg tablet 1 tab PO DAILY 01/16/21 01/16/21 01/14/21 History multivitamin 1 tab PO DAILY 01/16/21 01/16/21 01/14/21 History Physical Exam Vital Signs: Vital Signs: Last Vital Signs Temp 97.9 F 01/17/21 20:00 Pulse 64 01/17/21 20:00 Resp 18 01/17/21 20:00 BP 114/70 01/17/21 20:00 Pulse Ox 90 L 01/17/21 20:00 Body Mass Index 26.2 HENMT: Head: Yes normal to inspection Mouth: Normal oral and palatal mucosa present Resp: Effort & Inspection: normal respiratory effort Cardio: Rate: regular rate Rhythm: regular rhythm GI: Palpation (GI): nontender Extrem: General: Yes normal to inspection Results Labs CBC & Chem 7: 01/16/21 06:40 01/16/21 06:40 Microbiology Microbiology Results: Microbiology 01/15/21 19:13 Blood - Venous Blood Culture - Preliminary No growth after 48 hours. 01/15/21 19:01 Blood - Venous Blood Culture - Preliminary No growth after 48 hours. Assessment and Plan (1) Acute respiratory failure with hypoxia: Status: Acute He has some hypoxia due to residual COVID He has no opportunistic infection (2) COVID-19: Oxygen if needed Dexamethasone 6 mg daily for 10 days VTE prophylaxis
[2021-01-18 03:54] VITALS: BP 100/61; PULSE 55; RESP 18; O2SAT 93
[2021-01-18 07:35] VITALS: BP 118/69; PULSE 66; RESP 17; TEMP 36.4; O2SAT 91
[2021-01-18] MEDS: Zinc Sulfate 220 MG CAPSULE PO (09:55)
[2021-01-18] MEDS: Multivitamin TABLET 1 TAB PO (09:55)
[2021-01-18] MEDS: Fenofibrate 160 MG TABLET PO (09:55)
[2021-01-18] MEDS: dexAMETHasone sod phosphate 4 MG/ML VIAL 6 MG IVPUSH (09:55)
[2021-01-18] MEDS: Ascorbic Acid 500 MG TABLET PO (09:55)
[2021-01-18] MEDS: 0.9 % Sodium Chloride Flush 3 ML SYRINGE IVFLUSH (09:55)
[2021-01-18 10:51] VITALS: PULSE 83; O2SAT 91
--- NOTE | 2021-01-18 11:10 | P.DS_ITS ---
DS: Providers Provider Date of Service: 01/18/21 Date of admission: 01/15/21 19:22 Primary care physician: Tess Noriega NP Consults: 01/15/21 19:22 Consult to Infectious Diseases Routine Consulting Provider: Honey Woodard Reason for consultation: COVID positive DS: Diagnosis Discharge Diagnosis (1) Acute respiratory failure with hypoxia: Status: Acute (2) COVID-19: Status: Acute DS: Summary Hospital Course Hospital Course: Chief Complaint: SOB/Gen Weakness ?55-year-old male with a past medical history of BPH, hyperlipidemia presented to the hospital with a chief complaint of shortness of breath / generalized weakness.? Patient reported that he was diagnosed with COVID-19 positive about 12 days ago and has been on home quarantine; he has been feeling weak and tired.? Dyspnea on exertion.? Denies any chest pain or palpitations.? As the symptoms were not improving decided to come to the hospital for further evaluation.? Denies any nausea vomiting diarrhea.? Denies any urinary symptoms.? Review of all other systems is negative except mentioned above ER course: Per ER team patient on presentation noted to be mildly hypoxic on room air, not in respiratory distress; coarse lung sounds, CT chest is pending; chest x-ray showed multifocal pneumonia; inflammatory markers elevated -concern for COVID; rapid COVID test negative; admitted to the hospital for further? management Hospital course 55-year-old male with a past medical history of BPH, hyperlipidemia presented to the hospital with a chief complaint of shortness of breath / generalized weakness, COVID positive couple weeks ago, admitted with a diagnosis Of Acute hypoxic respiratory failure due to COVID-19 pneumonia, patient treated with IV Decadron, azithromycin, Pepcid, cough medication, vitamin-C and zinc, patient shortness of breath improved, prior to discharge home O2 eval obtained that showed oxygenation is stable at rest but he qualified for 4 L of oxygen with ambulation, since patient is hemodynamically stable with no shortness of breath with exertion no chest pain no fevers he is being discharged home for total 10 days of dexamethasone he has been recommended to have close follow-up with primary care physician to wean oxygen. CTA chest showed no PE but showed bilateral ground-glass opacities suggestive of COVID infection, also noted to have elevated COVID markers, including D-dimer of 425. Time Spent with Patient Time attestation: Total time spent providing and/or coordinating discharge services: Discharge coordination time: Greater than 30 minutes Quality: Stroke Does the patient have a stroke diagnosis?: No Physical Exam Vital Signs: Vital Signs: Last Vital Signs Temp 97.5 F 01/18/21 07:35 Pulse 66 01/18/21 07:35 Resp 17 01/18/21 07:35 BP 118/69 01/18/21 07:35 Pulse Ox 91 L 01/18/21 07:35 Body Mass Index 26.2 General awake alert x3,no acute distress.? Neck supple, no JVD. CVS? regular rate rhythm, Respiratory lungs clear to auscultation, no respiratory distress, few rhonchi Gastrointestinal abdomen soft, nontender, bowel sounds audible, no guarding , no rigidity. Extremities no edema. Neuro nonfocal Skin no rash Psych appropriate affect DS: Data Data Completed and Pending Labs on day of discharge: Preliminary micro results at discharge 01/15/21 19:13 Blood Culture - Preliminary Blood - Venous No growth after 48 hours. 01/15/21 19:01 Blood Culture - Preliminary Blood - Venous No growth after 48 hours. Discharge Plan Discharge Patient Disposition: Home, Self-Care Discharge Diagnosis: Acute hypoxic respiratory failure due to COVID-19 Referrals: Tess Noriega, [employer] [Primary Care Provider] - 2 days Discharge Medications: New ondansetron 4 mg tablet,disintegrating 4 mg PO Q6H PRN (Reason: nausea and vomiting) Qty: 10 RF: 0 azithromycin 250 mg tablet See Rx Instructions .ROUTE .COMPLEX Qty: 6 RF: 0 dextromethorphan-guaifenesin 10-100 mg/5 mL Syrup 1 ml PO Q6H PRN (Reason: cough) Qty: 240 RF: 0 famotidine 20 mg Tablet 20 mg PO BID Qty: 60 RF: 0 dexamethasone 6 mg tablet 6 mg PO DAILY Qty: 7 RF: 0 Continued multivitamin Tablet 1 tab PO DAILY RF: 0 fenofibrate 160 mg tablet 1 tab PO DAILY RF: 0 Discharge Orders: Discharge Order (Routine); Ordered 01/18/21 Ordered By: Suzan Edmond Diet: low fat, low cholesterol Activity on Discharge: As tolerated Stand Alone Forms: Patient Portal Discharge page Care Plan Goals: Take 4 L of oxygen with activity, no oxygen at rest, call primary care physician to follow finger oximetry in 1 week Take Decadron 6 mg daily for 7 more days, cough syrup as needed, finish course of azithromycin as previously ordered Take Pepcid to decrease acidity while on Decadron Health Concerns: Take all home medications as before Plan of Treatment: Outpatient follow-up with primary care physician in 1 week. Assessment: As above Patient Instructions: Viral Pneumonia (ED), COVID-19 (Coronavirus Disease 2019) (ED)
--- NOTE | 2021-01-18 11:14 | MHC.CM.PN ---
Male 55 DX Covid+ Home O2 eval has been completed. The Pt qualifies for 4L via [place] with ambulation. He is discharged to home today. RT has arranged for home O2 thru [facility]. Patient arranged for transport home.
== END 2021-01-18 13:56 | disposition home or self-care (01) | DRG 137 ==
LOC: HO.ED 18:35 → HO.EDOVER 19:42 → HO.IMC 01-17 16:33
PROVIDERS: Nurse Practitioner Family; Admitting Provider Hospitalist; Emergency Provider Emergency Medicine; PCP Nurse Practitioner Family; Visit Provider Hospitalist
DX: U07.1 COVID-19 (principal); J96.01 Acute respiratory failure with hypoxia; J12.82 Pneumonia due to coronavirus disease 2019; E78.5 Hyperlipidemia, unspecified; N40.0 Benign prostatic hyperplasia without lower urinary tract symptoms; E86.0 Dehydration; Z87.891 Personal history of nicotine dependence; Z79.899 Other long term (current) drug therapy
CPT/HCPCS: 36415; 71045; 71275; 80048; 80076; 82728; 83605; 83615; 84145; 84484; 85025; 85379; 85610; 86140; 87040; 87635; 93005; 99285; J0696; J1100; J1650; J2405; Q9967